=== PATIENT | female | born 1980 | race Two or more races ===

== ENCOUNTER 2016-11-10 16:48 | Emergency (ER) | payer OTHER ==
[~2016-11-10] VITALS: Ht 172.7 cm; Wt 79.4 kg
[2016-11-10] MEDS ORDERED: NEXIUM20 MG PO (17:00)
[2016-11-10] MEDS ORDERED: KETOROLAC TROME10 MG PO (17:26)
[2016-11-10] MEDS ORDERED: BACLOFEN10 MG PO (17:26)
== END 2016-11-10 17:33 | disposition home or self-care (01) ==
LOC: ED 16:48
DX: S46.911A Strain of unspecified muscle, fascia and tendon at shoulder and upper arm level, right arm, initial encounter (principal); F17.200 Nicotine dependence, unspecified, uncomplicated; Z90.49 Acquired absence of other specified parts of digestive tract; Z98.890 Other specified postprocedural states; Z79.899 Other long term (current) drug therapy; W17.81XA Fall down embankment (hill), initial encounter
CPT/HCPCS: 73030; 99283